=== PATIENT | male | born 1975 | race Caucasian/White ===

== ENCOUNTER → 2018-11-05 | Outpatient (CLI) | payer OTHER, SELFPAY ==
--- NOTE | 2018-11-05 16:50 | CT_ITS ---
STUDY: CT MAXILLOFACIAL SINUSES REASON FOR EXAM: Male, 42 years old. Sinusitis. Nasal polyps. RADIATION DOSAGE (If Supplied By Facility): CTDIvol = ( 33.06 ) mGy, DLP = ( 862.77 ) mGycm TECHNIQUE: The patient was scanned in a multi detector CT scanner. High resolution axial imaging was performed without the administration of intravenous contrast material. Sagittal and coronal images were reconstructed. Individualized dose optimization techniques were used for this CT. COMPARISON: MRI of the head 04/02/2016. FINDINGS: FRONTAL SINUSES: Normal aeration, without mucosal inflammatory disease. ETHMOIDAL SINUSES: Soft tissue density fills several ethmoid air cells bilaterally especially on the left. This is probably mucosal thickening consistent with chronic sinusitis. Polyps are not excluded. MAXILLARY SINUSES: No air-fluid levels. Lobulated soft tissue density along the floor of the right maxillary sinus is most likely mucosal thickening and mucous retention cysts. Polyps are less likely but not excluded. Left maxillary sinus is clear. SPHENOIDAL SINUSES: Normal aeration, without mucosal inflammatory disease. There is patency of the bilateral maxillary infundibuli with normal uncinate processes, ethmoid bullae, and hiatus semilunaris. Normal bilateral middle turbinates. Normal bilateral inferior turbinates. Normal midline nasal septum. Soft tissue density is seen extending caudal from the left ethmoids and to the area of the left middle turbinate consistent with mucosal thickening or polyps. The visualized osseous structures are normal. The visualized bilateral orbital contents are normal. CT/Sinus/Facial Bone IMPRESSION: No acute sinus disease. Multiple areas of mucosal thickening and/or polyps. Electronically Signed: Sukhdev Crum MD at 10:28 EDT , Service support ,
== END | disposition home or self-care (01) ==
PROVIDERS: Family Provider Family Medicine; PCP Family Medicine; Referring Provider Otolaryngology; Visit Provider Otolaryngology
DX: J32.9 Chronic sinusitis, unspecified (principal); J33.9 Nasal polyp, unspecified
CPT/HCPCS: 70486

== ENCOUNTER → 2018-11-15 | Outpatient (CLI) | payer OTHER, SELFPAY ==
[2016-04-01 23:20] VITALS: BMI 30.4
--- NOTE | 2018-11-15 | ETH_PTH ---
PATIENT: IVÁN CLAYTON LOC: [facility] U#:[id number] AGE/SX: 43/M ROOM: RE11/15/[address]: Dr. Ralph Marie MD : 1975 BED: DIS: 11/15/2018 SPEC #: [id number] RECD: 11/15/18 15:05 STATUS: HILARIO TIMOTHY #: [id number] ARAMIS: 11/15/18 00:[address]: Ralph Marie DEPT: SURGICAL PATHOLOGY RECD BY: Rusty Marcelino ENTERED: 11/16/18 12:12 SP TYPE: ETH TISS OTHR DR: Dr. Tristan Nichols, [facility] Tissues: A - Ethmoid sinus, NOS B - Ethmoid sinus, NOS C - Nasal septum, NOS Procedures: Decalcification bone/plaque Surgery Specimen Level III Surgery Specimen Level IV HEADER OPERATION: Septoplasty, total endoscopic ethmoidectomy, endoscopic maxillary antrostomy PRE-OP DIAGNOSIS: Nasal congestion, deviated nasal septum, polyp of nasal cavity, chronic sinusitis TISSUE SUBMITTED: A - Right sinus contents, B - Left sinus contents, C - Septum MICROSCOPIC DIAGNOSIS A. Right sinus contents: Fragments of respiratory mucosa with chronic inflammation and bone. B. Left sinus contents: Fragments of respiratory mucosa with chronic inflammation and bone. C. Septum: Fragments of bone and cartilage, clinically deviated nasal septum. ARRON:nicolas 11/19/18 MICROSCOPIC DESCRIPTION Slides are reviewed. GROSS DESCRIPTION A - Received in fixative is one container labeled with the patient's name and designated right sinus contents. The specimen consists of multiple irregular fragments of pink hemorrhagic soft tissue that in aggregate measure 3 x 2.5 x 0.3 cm. The entire specimen is submitted in one cassette. B - Received in fixative is one container labeled with the patient's name and designated left sinus contents. The specimen consists of multiple irregular fragments of pink hemorrhagic soft tissue mixed with fragments of bone that in aggregate measure 5 x 3 x 0.3 cm. The entire specimen is submitted in two cassettes after decalcification. C - Received in fixative is one container labeled with the patient's name and designated septum. The specimen consists of multiple irregular fragments of cartilage and bone that in aggregate measure 4 x 3 x 0.5 cm. The entire specimen is submitted in one cassette after decalcification. / ARRON:nicolas 11/16/18 TC:3 CPT: 13533 x2, 98250, 37921 x2
== END | disposition home or self-care (01) ==
LOC: LABSPEC 15:15
PROVIDERS: Family Provider Family Medicine; PCP Family Medicine; Referring Provider Otolaryngology; Visit Provider Otolaryngology
DX: J34.2 Deviated nasal septum (principal); R09.81 Nasal congestion; J33.0 Polyp of nasal cavity; J32.9 Chronic sinusitis, unspecified
CPT/HCPCS: 88304; 88305; 88311